=== PATIENT | male | born 1940 | race Caucasian/White ===

== ENCOUNTER 2019-06-02 16:23 | Inpatient (IN) | payer MEDICARE, SELFPAY ==
[~2019-06-02] VITALS: Ht 175.3 cm; Wt 65.8 kg
[2019-06-02 16:27] VITALS: BP 138/78
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
--- NOTE | 2019-06-02 16:59 | NUR ---
ED Nurse Note: Pt. went down to radiology for imaging
[2019-06-02] MEDS ORDERED: Isovue-300 100ml vial INJ PRN ×3 (17:15→18:30)
--- NOTE | 2019-06-02 17:26 | NUR ---
ED Nurse Note: pt. came back from radiology
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
[2019-06-02 18:45] VITALS: BP 135/75
[2019-06-02 18:53] LABS: HEMATOCRIT 33.3 % (42.0-52.0); HEMOGLOBIN 10.7 G/DL (14.2-18.0); MEAN CORPUSCULAR VOLUME 85 FL (80-99); PLATELET COUNT 249 K/UL (150-450); RED BLOOD COUNT 3.93 M/UL (4.70-6.10); RED CELL DISTRIBUTION WIDTH 13.5 % (11.6-14.8)
[2019-06-02 19:01] LABS: ANION GAP 6 mmol/L (5-15); BLOOD UREA NITROGEN 20 mg/dL (7-18); CALCIUM 9.2 MG/DL (8.5-10.1); CARBON DIOXIDE 27 MMOL/L (21-32); CHLORIDE 108 MMOL/L (98-107); CREATININE 0.8 MG/DL (0.55-1.30); SODIUM 141 MMOL/L (136-145)
[2019-06-02 19:04] LABS: APPEARANCE,URINE CLEAR; BILIRUBIN, URINE NEGATIVE (NEGATIVE); COLOR,URINE PALE YELLOW; GLUCOSE, URINE (UA) NEGATIVE (NEGATIVE); KETONES,URINE NEGATIVE (NEGATIVE); LEUKOCYTE ESTERASE ,URINE 1+ (NEGATIVE); NITRITE,URINE NEGATIVE (NEGATIVE); PH,URINE 6.5 (4.5-8.0); PROTEIN,URINE 2+ (NEGATIVE); UROBILINOGEN,URINE NORMAL MG/DL (0.0-1.0)
[2019-06-02 19:05] LABS: INR 0.9 (0.9-1.1)
[2019-06-02 19:14] LABS: ALANINE AMINOTRANSFERASE 20 U/L (12-78); ALBUMIN 3.1 G/DL (3.4-5.0); ALBUMIN/GLOBULIN RATIO 0.8 (1.0-2.7); ALKALINE PHOSPHATASE 210 U/L (46-116); ASPARTATE AMINO TRANSFERASE 27 U/L (15-37); BILIRUBIN,TOTAL 0.3 MG/DL (0.2-1.0); CKMB 5.4 NG/ML (0.0-3.6); CREATINE KINASE 188 U/L (26-308)
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
[2019-06-02] MEDS ORDERED: Ketorolac 30mg Inj IV ONE (20:30)
--- NOTE | 2019-06-02 21:54 | NUR ---
PT TAKEN TO UNIT AND REPORT DONE BY CHRISTIAN GARCIA
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
[2019-06-03] VITALS: BP 124/79
--- NOTE | 2019-06-03 | NUR ---
NURSE NOTES: Patient given sponge bath, partial, as patient requested. Addendum: 06/04/19 at 0053 by KAYA STOLL RN RN Incorrect date 06/04/19 0000.
[2019-06-03 04:00] VITALS: BP 121/72
[2019-06-03 06:44] LABS: ALANINE AMINOTRANSFERASE 16 U/L (12-78); ALBUMIN 3.3 G/DL (3.4-5.0); ALBUMIN/GLOBULIN RATIO 0.9 (1.0-2.7); ALKALINE PHOSPHATASE 211 U/L (46-116); ANION GAP 5 mmol/L (5-15); ASPARTATE AMINO TRANSFERASE 28 U/L (15-37); BILIRUBIN,TOTAL 0.4 MG/DL (0.2-1.0); BLOOD UREA NITROGEN 17 mg/dL (7-18); CALCIUM 8.8 MG/DL (8.5-10.1); CARBON DIOXIDE 29 MMOL/L (21-32); CHLORIDE 105 MMOL/L (98-107); CREATININE 0.7 MG/DL (0.55-1.30); POTASSIUM 4.3 MMOL/L (3.5-5.1); SODIUM 139 MMOL/L (136-145)
--- NOTE | 2019-06-03 06:50 | NUR ---
HAND-OFF: Report given to Regan GONZALES.
[2019-06-03 06:53] LABS: HEMATOCRIT 34.2 % (42.0-52.0); HEMOGLOBIN 10.8 G/DL (14.2-18.0); MEAN CORPUSCULAR VOLUME 86 FL (80-99); PLATELET COUNT 258 K/UL (150-450); RED BLOOD COUNT 3.97 M/UL (4.70-6.10); RED CELL DISTRIBUTION WIDTH 14.3 % (11.6-14.8); WHITE BLOOD COUNT 5.1 K/UL (4.8-10.8)
--- NOTE | 2019-06-03 07:30 | NUR ---
NURSE NOTES: Received pt from CHRISTIAN CHRISTIAN. Pt is confused x3. pt is in RA, no SOB or acute respiratory distress noted. pt has intact iv [id number] RFA 20G SL. An officer is with pt all the times. pt is eating breakfast independently. DESTINY SANDOVAL is aware. All needs attended, bed is locked and is in the lowest position. call light within easy reach. will continue to monitor.
[2019-06-03 08:00] VITALS: BP 125/68
--- NOTE | 2019-06-03 08:38 | Consultation ---
History of Present Illness General Date patient seen: Jun 03, 2019 Present Illness Allergies: Coded Allergies: No Known Allergies (Unverified , 06/02/19) Patient History Healthcare decision maker N Resuscitation status Full Code Advanced Directive on File No Physical Exam Last 24 Hour Vital Signs Date Time Temp Pulse Resp B/P (MAP) Pulse Ox O2 Delivery O2 Flow Rate FiO2 06/03/19 04:00 98.2 66 18 121/72 (88) 06/03/19 00:00 98.1 59 17 124/79 (94) 06/02/19 22:10 Room Air 06/02/19 21:41 98.6 74 19 135/75 100 Room Air 06/02/19 18:45 98.6 74 19 135/75 100 Room Air 06/02/19 16:27 60 14 Room Air 06/02/19 16:27 98.1 60 14 138/78 (98) 95 Room Air 06/02/19 16:27 98.1 60 14 138/78 95 Room Air Laboratory Tests Test 06/02/19 18:25 06/02/19 18:50 06/03/19 05:10 White Blood Count 5.0 K/UL (4.8-10.8) 5.1 K/UL (4.8-10.8) Red Blood Count 3.93 M/UL (4.70-6.10) L 3.97 M/UL (4.70-6.10) L Hemoglobin 10.7 G/DL (14.2-18.0) L 10.8 G/DL (14.2-18.0) L Hematocrit 33.3 % (42.0-52.0) L 34.2 % (42.0-52.0) L Mean Corpuscular Volume 85 FL (80-99) 86 FL (80-99) Mean Corpuscular Hemoglobin 27.3 PG (27.0-31.0) 27.2 PG (27.0-31.0) Mean Corpuscular Hemoglobin Concent 32.1 G/DL (32.0-36.0) 31.6 G/DL (32.0-36.0) L Red Cell Distribution Width 13.5 % (11.6-14.8) 14.3 % (11.6-14.8) Platelet Count 249 K/UL (150-450) 258 K/UL (150-450) Mean Platelet Volume 5.2 FL (6.5-10.1) L 5.5 FL (6.5-10.1) L Neutrophils (%) (Auto) % (45.0-75.0) % (45.0-75.0) Lymphocytes (%) (Auto) % (20.0-45.0) % (20.0-45.0) Monocytes (%) (Auto) % (1.0-10.0) % (1.0-10.0) Eosinophils (%) (Auto) % (0.0-3.0) % (0.0-3.0) Basophils (%) (Auto) % (0.0-2.0) % (0.0-2.0) Differential Total Cells Counted 100 100 Neutrophils % (Manual) 40 % (45-75) L 46 % (45-75) Lymphocytes % (Manual) 44 % (20-45) 35 % (20-45) Monocytes % (Manual) 15 % (1-10) H 18 % (1-10) H Eosinophils % (Manual) 0 % (0-3) 1 % (0-3) Basophils % (Manual) 0 % (0-2) 0 % (0-2) Band Neutrophils 1 % (0-8) 0 % (0-8) Platelet Estimate Adequate Adequate Platelet Morphology Normal Normal Polychromasia 1+ Prothrombin Time 10.0 SEC (9.30-11.50) Prothromb Time International Ratio 0.9 (0.9-1.1) Activated Partial Thromboplast Time 19 SEC (23-33) L Sodium Level 141 MMOL/L (136-145) 139 MMOL/L (136-145) Potassium Level 4.0 MMOL/L (3.5-5.1) 4.3 MMOL/L (3.5-5.1) Chloride Level 108 MMOL/L (98-107) H 105 MMOL/L (98-107) Carbon Dioxide Level 27 MMOL/L (21-32) 29 MMOL/L (21-32) Anion Gap 6 mmol/L (5-15) 5 mmol/L (5-15) Blood Urea Nitrogen 20 mg/dL (7-18) H 17 mg/dL (7-18) Creatinine 0.8 MG/DL (0.55-1.30) 0.7 MG/DL (0.55-1.30) Estimat Glomerular Filtration Rate > 60 mL/min (>60) > 60 mL/min (>60) Glucose Level 130 MG/DL (74-106) H 89 MG/DL (74-106) Calcium Level 9.2 MG/DL (8.5-10.1) 8.8 MG/DL (8.5-10.1) Total Bilirubin 0.3 MG/DL (0.2-1.0) 0.4 MG/DL (0.2-1.0) Aspartate Amino Transf (AST/SGOT) 27 U/L (15-37) 28 U/L (15-37) Alanine Aminotransferase (ALT/SGPT) 20 U/L (12-78) 16 U/L (12-78) Alkaline Phosphatase 210 U/L (46-116) H 211 U/L (46-116) H Total Creatine Kinase 188 U/L (26-308) Creatine Kinase MB 5.4 NG/ML (0.0-3.6) H Creatine Kinase MB Relative Index 2.8 Troponin I 0.000 ng/mL (0.000-0.056) Total Protein 7.2 G/DL (6.4-8.2) 6.9 G/DL (6.4-8.2) Albumin 3.1 G/DL (3.4-5.0) L 3.3 G/DL (3.4-5.0) L Globulin 4.1 g/dL 3.6 g/dL Albumin/Globulin Ratio 0.8 (1.0-2.7) L 0.9 (1.0-2.7) L Serum Alcohol < 3 mg/dL Urine Color Pale yellow Urine Appearance Clear Urine pH 6.5 (4.5-8.0) Urine Specific [place] 1.015 (1.005-1.035) Urine Protein 2+ (NEGATIVE) H Urine Glucose (UA) Negative (NEGATIVE) Urine Ketones Negative (NEGATIVE) Urine Blood 1+ (NEGATIVE) H Urine Nitrite Negative (NEGATIVE) Urine Bilirubin Negative (NEGATIVE) Urine Urobilinogen Normal MG/DL (0.0-1.0) Urine Leukocyte Esterase 1+ (NEGATIVE) H Urine RBC 2-4 /HPF (0 - 0) H Urine WBC 2-4 /HPF (0 - 0) Urine Squamous Epithelial Cells Occasional /LPF Urine Bacteria Moderate /HPF (NONE) H Urine Opiates Screen Negative (NEGATIVE) Urine Barbiturates Screen Negative (NEGATIVE) Phencyclidine (PCP) Screen Negative (NEGATIVE) Urine Amphetamines Screen Negative (NEGATIVE) Urine Benzodiazepines Screen Negative (NEGATIVE) Urine Cocaine Screen Negative (NEGATIVE) Urine Marijuana (THC) Screen Positive (NEGATIVE) H Hypochromasia 1+ Microbiology Date/Time Source Procedure Growth Status 06/02/19 18:50 Urine,Clean Catch Urine Culture - Preliminary Resulted Height (Feet): 5 Height (Inches): 9.00 Weight (Pounds): 145 Medications Current Medications Medications (Trade) Dose Ordered Sig/Sujatha Route PRN Reason Start Time Stop Time Status Last Admin Dose Admin Acetaminophen (Tylenol) 650 mg Q4H PRN ORAL Mild Pain/Temp > 100.5 06/02/19 23:30 07/02/19 23:29 Iopamidol (Isovue-300 100ml) 100 ml NOW PRN INJ Radiology Procedure 06/02/19 17:15 06/04/19 17:15 Iopamidol (Isovue-300 100ml) 100 ml NOW PRN INJ Radiology Procedure 06/02/19 18:30 06/04/19 18:20 Iopamidol (Isovue-300 100ml) 100 ml NOW PRN INJ Radiology Procedure 06/02/19 18:30 Assessment/Plan Assessment/Plan: (1) Back pain (2) Multiple Lumbar compression fractures (3) Rib fractures seen dictated Pradip Tong Jun 03, 2019 08:38
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
--- NOTE | 2019-06-03 11:00 | Diagnostic Imaging Report ---
Indication: Chest and abdominal pain. Trauma. Technique: Continuous helical transaxial imaging of the chest, abdomen and pelvis was obtained from the lung bases to the pubic symphysis during intravenous contrast administration. Multiple phases of enhancement obtained. Coronal 2-D reformats were also obtained. Study obtained in a Siemens sensation [address] Automatic Exposure Control was utilized. Total Dose length Product (DLP): 960.[address] Dose Index Volume (CTDIvol): 9.65,9.7 mGy Comparison: None Findings: CT CHEST: There is extensive breathing motion limiting evaluation. There are fractures involving multiple ribs on the right side. At least 3 of these appear acute namely the fifth sixth and seventh ribs just anterior to the scapula. There are also fractures of the right lower rib cage namely the ninth and 10th ribs but these show callus and appear to be of a different age than the other fractures. Please correlate clinically. There is no pneumothorax or evidence of deep or injury such as a lung contusion or hematoma. There is no pleural fluid identified. There is generalized emphysema noted with the areas of hyperlucency particularly in the upper lobes. There is a hiatal hernia. CT abdomen pelvis: Lumbar-sacral spine was discussed on the CT lumbar spine report. There are multiple compression fractures noted. Within the pelvis there is an unusual fracture involving the parasymphysis region on the right. Overall the appearance is more in keeping with an older injury. However please correlate clinically. There are portions of the bone and ligamentous and/or soft tissue ossification adjacent to the right pubic fracture which suggests this is also older injury. In addition there are bilateral sacral fractures. These could be subacute in age. There is some sclerosis associated with the fractures. Please correlate clinically. Generalized osteopenia is noted. Within the urinary bladder there is an enhancing mass demonstrated measuring about 2.3 x 3 cm. This is along the posterior wall of the urinary bladder toward the left side. This is near the UVJ. Cystoscopic correlation is recommended. Malignancy is a suspected. There is mild thickening of the wall the urinary bladder. There is mild distention of fluid-filled small bowel throughout the abdomen. The gallbladder is contracted. There is no hydronephrosis. Suggestion of diverticula within the colon without definite diverticulitis. The appendix is not well seen on this examination is questionably identified. Moderate aortoiliac calcifications are present. Extensive motion limiting evaluation. IMPRESSION: Acute rib fractures on the right fifth through eighth ribs. No pneumothorax or evidence of associated deeper injury. Older fractures involving the right ninth and 10th ribs. Older fractures involving the right pubis adjacent to the pubic symphysis with adjacent extensive soft tissue ossification. Subacute to chronic fractures involving the sacrum bilaterally. Correlate clinically. 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 This is further discussed on the CT lumbar spine report. Incidental findings: 2.5 cm mass left posterior urinary bladder. Malignancy suspected. Correlate with cystoscopy. Emphysema/COPD as described above Hiatal hernia. Suggestion of mild diverticulosis without definite evidence of diverticulitis. Atherosclerotic vascular disease. The current study is significantly limited by motion within the chest and abdomen and pelvis. Preliminary results were conveyed to the emergency department 06/02/19 @20: 20. The CT scanner at [facility] is accredited by the [employer] and the scans are performed using dose optimization techniques as appropriate to a performed exam including Automatic Exposure control.
--- NOTE | 2019-06-03 11:07 | NUR ---
NURSE NOTES: relayed to Dr Ellison re Dr Barrios recs to consult spine consult or transfer to higher level of care per dr ellison he will consult dr Rossi and if there is bed at [facility] pt may be transferred
--- NOTE | 2019-06-03 11:13 | Diagnostic Imaging Report ---
Indication: Headache. Head trauma Technique: Contiguous 5 mm thick transaxial imaging of the head obtained in a Siemens Sensation [address] scanner. Soft tissue and bone windows generated. Automatic Exposure Control was utilized. Total Dose length Product (DLP): 1541.[address] Dose Index Volume (CTDIvol): 70.38 mGy Comparison: none Findings: There is mild prominence of the ventricles, basal cisterns, and cerebral sulci consistent with atrophy. Mild, nonspecific, white matter hypoattenuation is noted throughout the brain consistent with chronic small vessel disease. There is no midline shift, edema, acute hemorrhage, mass effect, or abnormal extra-axial fluid collections. There is a evidence of a fracture involving the floor the right orbit. This is probably an old fracture. There is moderate depression of the floor into the upper part of the maxillary sinus. There is also fracture of the lateral wall the orbit which is probably old as well. The right globe is abnormal with the ovoid area of high density within the vitreous chamber which may represent hemorrhage or proteinaceous fluid. There are radiopaque bandlike structure on the globe from prior surgery. There is a small focus of scalp swelling over the right frontal region and mild the soft tissue swelling over the nose. Impression: No acute intracranial bleed, mass effect or edema. Mild atrophy of the brain. Nonspecific white matter hypoattenuation probably due to chronic small vessel disease. Evidence of previous right facial and orbital trauma. This is probably old. Please correlate clinically Mild scalp and nasal contusion suspected. The CT scanner at [facility] is accredited by the [employer] and the scans are performed using dose optimization techniques as appropriate to a performed exam including Automatic Exposure control.
--- NOTE | 2019-06-03 11:30 | Diagnostic Imaging Report ---
Indication: Back pain Technique: Continuous helical transaxial imaging of the lumbar spine was obtained. No IV contrast was administered. Coronal 2-D reformats were also obtained. Study obtained in a Siemens sensation [address] Total Dose length Product (DLP): 449.[address] Dose Index Volume (CTDIvol): 12.75 mGy Comparison: None Findings: There are severe compression fracture deformities involving all of the lumbar vertebra and the T12 vertebra which show variable degrees of moderate to severe loss of height. The most severe compression fractures involving the T12 and L1 vertebra and the L3 vertebra. The L3 vertebral fracture is notable for mild retropulsion into the canal resulting in probable central canal stenosis. The age of the fractures is not absolutely certain but there is definitely a chronic component. In other words, the fractures are old with the caveat that there may be superimposed acute injury which is not excludable. MRI may be helpful for further evaluation as MR is more specific and sensitive for acute bony injury. In addition, the bones exhibit marked heterogeneity with areas of lucency for example within the upper endplates of L4 and within the L2 vertebra, T11 and T10 vertebra. While this may be due to severe osteoporosis, infiltrative disease such as a metastatic neoplasm or multiple myeloma are not excluded. Superimposed degenerative disease noted with multilevel endplate osteophytes and sclerosis and hypertrophy of the lumbar facets. Some of the vertebral fractures are demonstrated vacuum cleft for example at T12 and at L1. There is also moderate variable degrees of narrowing of intervertebral discs. Lastly, the sacrum is notable for bilateral fractures which appear old. Aorta is moderately calcified. IMPRESSION: Severe multilevel vertebral fractures involving T12-L5. The fractures are old. However there may be an acute component superimposed which is not excludable. If clinically warranted, further evaluation with MRI is suggested. Marked heterogeneity with diminished bone mineralization. Metastatic neoplasm or myeloma are not excluded. Findings could be on the basis of aggressive severe osteoporosis. Superimposed degenerative spondylosis as described above. Bilateral sacral fractures late subacute to chronic. Variable degrees of central lateral recess and neural foraminal stenosis which may be better evaluated with MRI. Atherosclerotic disease. The CT scanner at [facility] is accredited by the [employer] and the scans are performed using dose optimization techniques as appropriate to a performed exam including Automatic Exposure control.
[2019-06-03 12:00] VITALS: BP 134/86
[2019-06-03 13:16] LABS: FERRITIN 20 NG/ML (8-388)
--- NOTE | 2019-06-03 13:17 | NUR ---
[employer]ARDER NOTE FAXED OVER MAC FORM TO PLACE PATIENT ON THE MAC LIST CT IMPRESSION REQUESTED. PATIENT MAC NUMBER IS [id number]. WILL CONTINUE TO FOLLOW UP ON TRANSFER
[2019-06-03 13:33] LABS: % IRON SATURATION 20 % (15-50); IRON 72 ug/dL (50-175); TOTAL IRON BINDING CAPACITY 367 ug/dL (250-450)
--- NOTE | 2019-06-03 14:14 | Diagnostic Imaging Report ---
Indication: Chest pain Comparison: None A single view chest radiograph was obtained. Findings: There are multiple rib fractures on the right. The lungs are clear. Heart size is normal. The aorta is slightly enlarged in the area of the arch. Bones are osteopenic. IMPRESSION: Multiple right-sided rib fractures.
--- NOTE | 2019-06-03 14:57 | Diagnostic Imaging Report ---
Indication: Back pain Comparison: None Findings: 3 views of the lumbar spine were obtained. Bones are severely osteopenic. Evaluation is very limited because of projected bowel gas which obscures detail. There are multiple severe vertebral compression fracture deformities that are not evaluated well but appear to involve every level of the lumbar spine. The most severe fractures are at T12, L1, L2 and L3. IMPRESSION: Moderate to severe multilevel vertebral compression fractures, acuity indeterminate on the basis of the current study which is not the adequate. Please refer to the CT report
--- NOTE | 2019-06-03 15:25 | NUR ---
NURSE NOTES: pt is stable and left unit to MRI, waiting to come back.
[2019-06-03 16:00] VITALS: BP 122/52
--- NOTE | 2019-06-03 16:00 | NUR ---
NURSE NOTES: pt came back from MRI and is stable. will continue to monitor.
--- NOTE | 2019-06-03 16:19 | NUR ---
FOREST [employer] BR[employer]ER 58 Y/O MALE BIBA FROM [facility] TO [facility] CC:MEDICAL CLEARANCE SI:ACUTE LUMBAR FRACTURE . RIB FRACTURE VS: BP 138/78, P 60, T 98.0, RR 14, SpO2 95 RBC 3.93, H&H 10.7/33.3, BUN 20 LUMBAR XRAY: Moderate to severe multilevel vertebral compression fractures IS:NS x1L IV TORADOL 30mg IV PLAN: TRANSFER TO HIGHER LEVEL OF CARE MRI OF THE SPINE ADMITTED TO MED/SURG
[2019-06-03] MEDS ORDERED: LORazepam 1mg tab ORAL PRN (16:30)
--- NOTE | 2019-06-03 16:41 | Diagnostic Imaging Report ---
Indication: Neck pain Technique: MRI examination of the cervical spine was performed in a 1.5 Mahnaz magnet. Sequences obtained include sagittal and axial T1 and T2 fast spin echo, and sagittal STIR. Comparison: none Findings: The study is incomplete. Patient was uncooperative and refused to continue. The sagittal STIR sequence was not performed. The current study is suboptimal due to motion. There is no evidence of cord compression. There is loss of cervical lordosis with slight kyphotic deformity in the mid part of the cervical spine. There is abnormal bone marrow signal involving the C4 and C5 vertebra, nature of which is not known. The abnormality is mainly seen on T1 with abnormally low T1 signal noted in this location. There is desiccation and narrowing of intervertebral discs moderate in degree at C4-5 C5-6 and C6-7. Mild anterolisthesis noted at C3-4 and C4-5. Minimal retrolisthesis noted at C6-7. Marginal endplate spurs also demonstrated at these levels as well as uncovertebral spur formation. Mild to moderate bilateral foraminal stenosis demonstrated at C2-3 on the right, bilaterally at C3-4, C5-4-5, C5-6, and C6-7. Mild central stenosis may be present at C4-5. C1-2 is notable for moderate degree of pannus formation. Correlate for rheumatoid arthritis which is sometimes associated with this. No abscess, epidural collection or paraspinous/paravertebral fluid collections or mass identified. IMPRESSION: Incomplete, limited evaluation as described above. C1-2 pannus. Correlate for rheumatoid arthritis or prior trauma. Degenerative disc disease at multiple levels and uncovertebral spur formation with multilevel neural foraminal stenosis. Mild spinal stenosis at C4-5 noted. No evidence of cord compression or myelomalacia. Abnormal bone marrow signal within the C4 and C5 vertebra incompletely assessed on the current examination. The low T1 signal could be due to bone marrow edema. No corresponding STIR sequence could be performed as the patient refused to continue.
--- NOTE | 2019-06-03 17:06 | Cardiology Report ---
APPROVED REPORT EKG Measurement Heart [id number] MI [id number] Normal sinus rhythm Normal ECG
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
--- NOTE | 2019-06-03 19:34 | NUR ---
HAND-OFF: Report given to CHRISTIAN KIRKPATRICK.
--- NOTE | 2019-06-03 20:00 | NUR ---
NURSE NOTES: Patient received in bed, asleep, no acute distress at this time. Bilat leg SCDs on. Call light in reach. international first officer at bedside. IV RFA intact. Will monitor.
[2019-06-03 20:40] VITALS: BP 136/83
[2019-06-03] MEDS: Methocarbamol 500mg tab ORAL PRN (20:44)
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
[2019-06-04] VITALS: BP 110/72
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
--- NOTE | 2019-06-04 00:51 | NUR ---
NURSE NOTES: Spoke with Ron from [facility] [phone] regarding updates on bed availability for patient transfer. No bed available yet.
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
[2019-06-04 04:14] VITALS: BP 113/66
[2019-06-04] MEDS: Methocarbamol 500mg tab ORAL PRN ×2 (04:58→15:35)
--- NOTE | 2019-06-04 07:25 | NUR ---
HAND-OFF: Report given to John GONZALES.
[2019-06-04 08:00] VITALS: BP 129/76
--- NOTE | 2019-06-04 08:31 | NUR ---
IT ADMIN NOTES FAXED MRI RESULTS TO [facility] [phone] Addendum: 06/04/19 at 0856 by Hannah Bob LVN RECEIVED A CALL BACK FROM MARIBEL (COORDINATOR 61) AT [facility] HE WILL REACH OUT TO THE SPINE SURGEON AND CALL BACK TO INFORM ME OF THEIR DECISION.
--- NOTE | 2019-06-04 08:42 | General Progress Note ---
Assessment/Plan Assessment/Plan: (1) Back pain (2) Multiple Lumbar compression fractures (3) Rib fractures Patient will be continued on Tylenol, Robaxin, Neurontin and Lidoderm patch. D/w Dr. Hinton and he concurred. Subjective Date patient seen: Jun 04, 2019 Time patient seen: 07:15 - am Allergies: Coded Allergies: No Known Allergies (Unverified , 06/02/19) Subjective REVIEW OF SYSTEMS: Denies rash, fever, chills, sweating, dizziness, drowsiness, sore throat, or change in weight. No shortness of breath or chest pain. No bowel or bladder incontinence. No dysuria. He is complaining of back pain. SUBJECTIVE: Patient in bed and showing no signs of pain or distress. Pain has been tolerated on the Lidoderm patch and Neurontin. Waiting to be transferred to higher level of care facility. Objective Last 24 Hour Vital Signs Date Time Temp Pulse Resp B/P (MAP) Pulse Ox O2 Delivery O2 Flow Rate FiO2 06/04/19 08:00 97.7 67 18 129/76 (93) 96 06/04/19 04:14 97.8 66 19 113/66 (82) 97 06/04/19 00:00 97.6 63 19 110/72 (85) 95 06/03/19 21:00 Room Air 06/03/19 20:40 97.9 65 19 136/83 (100) 96 06/03/19 19:07 98.4 06/03/19 16:00 98.4 64 19 122/52 (75) 98 06/03/19 12:00 98.0 62 18 134/86 (102) 98 06/03/19 09:00 Room Air Intake and Output 06/03/19 06/04/19 19:00 07:00 Intake Total 260 ml 600 ml Output Total 1100 ml Balance 260 ml -500 ml Intake Oral 260 ml 600 ml Output Urine Total 1100 ml # Voids 4 Height (Feet): 5 Height (Inches): 9.00 Weight (Pounds): 145 Objective GENERAL: Alert, awake, oriented. LUNGS: Decreased bilaterally. HEART: S1 and S2 regular. ABDOMEN: Soft, nontender. EXTREMITIES: No cyanosis. No clubbing. NEURO: No changes. Pradip Tong Jun 04, 2019 08:42
--- NOTE | 2019-06-04 10:54 | NUR ---
NURSE NOTES: PT AXOX3-4, CALM, RESTING IN BED. OFFICER AT BEDSIDE. IN NO APPARENT DISTRESS AT THIS TIME. PT STATES HE HAS PAIN ON RIGHT RIBS. LINDA HOOK, WAS AT BEDSIDE AND MADE AWARE OF NEW PAIN. NO CHANGES TO MEDICATION NOTED. BED IN LOWEST POSITION WITH BEDSIDE RAILS X2 RAISED. BED ALARM ON. CALL LIGHT WITHIN REACH. WILL CONTINUE TO MONITOR.
[2019-06-04 12:00] VITALS: BP 133/80
--- NOTE | 2019-06-04 13:39 | NUR ---
Social Service Note Patient brought in from correction for medical clearance. Patient continues in police custody with officer at bedside. CM working with [facility] for possible transfer. Medical records under review with [facility]. If no surgery indicated patient will return to correction under police custody. Will continue to monitor.
[2019-06-04] MEDS ORDERED: LORazepam Inj 2mg/ml 1ml IV SCH (14:07)
--- NOTE | 2019-06-04 15:37 | NUR ---
MRI CERVICAL STUDY REPEATED AND COMPLETED. SAG STIR IMAGES COMPLETED.
[2019-06-04 16:00] VITALS: BP 127/78
--- NOTE | 2019-06-04 16:22 | Diagnostic Imaging Report ---
Indication: Neck pain. Completing a study from yesterday Technique: MRI examination of the cervical spine was repeated and performed performed in a 1.5 Mahnaz magnet. Sequences obtained include sagittal and axial T1 and T2 fast spin echo, and sagittal STIR. Comparison: MRI cervical spine 06/03/2019 Findings: Current study is also limited by motion. Additional sequences performed confirming presence of bone marrow edema within the C4 and C5 vertebra. Given the degree of degenerative disease present with moderate associated endplate osteophytes and moderate degenerative desiccation and narrowing of intervertebral discs, the bone marrow edema is likely degenerative in nature as well. There is no associated soft tissue swelling in the paravertebral region to suggest traumatic origin to the bone marrow edema and no significant loss of height of the vertebra are seen. Neoplasm is a consideration and included in the differential diagnosis especially if the patient has a history of cancer. No other additional information apart from what was already described yesterday is forthcoming on the basis of the additional sequences obtained today. IMPRESSION: Confirmation of a bone marrow edema within the C4-C5 vertebra which may be degenerative in nature. Would include a differential diagnosis of the metastatic neoplasm or myeloma. Clinical workup and correlation suggested. If warranted clinically, whole bone scan may be of benefit to look for other lesions which may corroborate the current findings.
--- NOTE | 2019-06-04 16:39 | NUR ---
[employer] ME[employer]ANIC NOTE FAXED NEW MRI TO [facility]
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
--- NOTE | 2019-06-04 19:19 | NUR ---
HAND-OFF: Report given to Karan STOLL RN.
[2019-06-04 20:00] VITALS: BP 122/78
--- NOTE | 2019-06-04 20:00 | NUR ---
NURSE NOTES: Patient received in bed, alert and awake. Left hand handcuffed to bed, per officer at bedside. No acute distress at this time. Patient calm and cooperative. IV is intact. Call light in reach, instructed to call for assistance, verbalized understanding. Will continue to monitor.
--- NOTE | 2019-06-04 21:59 | General Progress Note ---
Assessment/Plan Problem List: (1) Rib fracture ICD Codes: S22.39XA - Fracture of one rib, unspecified side, initial encounter for closed fracture SNOMED: 00878171 (2) Lumbar compression fracture ICD Codes: S32.000A - Wedge compression fracture of unspecified lumbar vertebra , initial encounter for closed fracture SNOMED: 642270044 Status: progressing Assessment/Plan: afebrile rib and lumbar fx mri inconclusive reordered mri awaiting transfer to [facility] Subjective ROS Limited/Unobtainable: Yes Constitutional: Reports: no symptoms Allergies: Coded Allergies: No Known Allergies (Unverified , 06/02/19) Objective Last 24 Hour Vital Signs Date Time Temp Pulse Resp B/P (MAP) Pulse Ox O2 Delivery O2 Flow Rate FiO2 06/04/19 21:00 Room Air 06/04/19 20:00 99.0 88 18 122/78 (93) 95 06/04/19 16:00 98.9 74 18 127/78 (94) 96 06/04/19 12:00 97.9 68 18 133/80 (97) 96 06/04/19 09:00 Room Air 06/04/19 08:00 97.7 67 18 129/76 (93) 96 06/04/19 04:14 97.8 66 19 113/66 (82) 97 06/04/19 00:00 97.6 63 19 110/72 (85) 95 Intake and Output 06/03/19 06/04/19 18:59 06:59 Intake Total 260 ml 600 ml Output Total 1100 ml Balance 260 ml -500 ml Intake Oral 260 ml 600 ml Output Urine Total 1100 ml # Voids 4 Height (Feet): 5 Height (Inches): 9.00 Weight (Pounds): 145 EENT: PERRL/EOMI Cardiovascular: normal rate Abdomen: soft Edna Ellison MD Jun 04, 2019 21:58
[2019-06-05] VITALS: BP 126/78
[2019-06-05 04:00] VITALS: BP 129/82
--- NOTE | 2019-06-05 07:19 | NUR ---
HAND-OFF: Report given to John GONZALES.
[2019-06-05 07:45] VITALS: BP 135/78
--- NOTE | 2019-06-05 08:14 | General Progress Note ---
Assessment/Plan Assessment/Plan: (1) Back pain (2) Multiple Lumbar compression fractures (3) Rib fractures Patient will be continued on Tylenol, Robaxin, Neurontin and Lidoderm patch. We will order MRI L spine w/o contrast D/w Dr. Hinton and he concurred. Subjective Date patient seen: Jun 05, 2019 Time patient seen: 07:15 - am Allergies: Coded Allergies: No Known Allergies (Unverified , 06/02/19) Subjective REVIEW OF SYSTEMS: Denies rash, fever, chills, sweating, dizziness, drowsiness, sore throat, or change in weight. No shortness of breath or chest pain. No bowel or bladder incontinence. No dysuria. He is complaining of back pain. SUBJECTIVE: Patient shows no signs of pain or distress. Pain has been tolerated on the Neurontin and Tylenol. He has no new complaints at this time. Awaiting transfer to higher level of care facility. Objective Last 24 Hour Vital Signs Date Time Temp Pulse Resp B/P (MAP) Pulse Ox O2 Delivery O2 Flow Rate FiO2 06/05/19 07:45 97.8 77 18 135/78 (97) 94 06/05/19 04:00 98.0 79 18 129/82 (98) 97 06/05/19 00:00 98.6 85 18 126/78 (94) 96 06/04/19 21:00 Room Air 06/04/19 20:00 99.0 88 18 122/78 (93) 95 06/04/19 16:00 98.9 74 18 127/78 (94) 96 06/04/19 12:00 97.9 68 18 133/80 (97) 96 06/04/19 09:00 Room Air Intake and Output 06/04/19 06/05/19 19:00 07:00 Intake Total 650 ml Output Total 650 ml Balance 650 ml -650 ml Intake Oral 650 ml Output Urine Total 650 ml # Voids 2 4 # Bowel Movements 1 Height (Feet): 5 Height (Inches): 9.00 Weight (Pounds): 145 Objective GENERAL: Alert, awake, oriented. LUNGS: Decreased bilaterally. HEART: S1 and S2 regular. ABDOMEN: Soft, nontender. EXTREMITIES: No cyanosis. No clubbing. NEURO: No changes. Pradip Tong Jun 05, 2019 08:14
--- NOTE | 2019-06-05 10:14 | NUR ---
MRI LUMBAR COMPLETED.
--- NOTE | 2019-06-05 10:37 | General Progress Note ---
Assessment/Plan Problem List: (1) Rib fracture ICD Codes: S22.39XA - Fracture of one rib, unspecified side, initial encounter for closed fracture SNOMED: 94312051 (2) Lumbar compression fracture ICD Codes: S32.000A - Wedge compression fracture of unspecified lumbar vertebra , initial encounter for closed fracture SNOMED: 390466155 Status: progressing Assessment/Plan: generalized pain reordered mri w sedation rib and lumbar fx mri inconclusive reordered mri awaiting transfer [facility] Subjective Allergies: Coded Allergies: No Known Allergies (Unverified , 06/02/19) Subjective generalized pain Objective Last 24 Hour Vital Signs Date Time Temp Pulse Resp B/P (MAP) Pulse Ox O2 Delivery O2 Flow Rate FiO2 06/05/19 07:45 97.8 77 18 135/78 (97) 94 06/05/19 04:00 98.0 79 18 129/82 (98) 97 06/05/19 00:00 98.6 85 18 126/78 (94) 96 06/04/19 21:00 Room Air 06/04/19 20:00 99.0 88 18 122/78 (93) 95 06/04/19 16:00 98.9 74 18 127/78 (94) 96 06/04/19 12:00 97.9 68 18 133/80 (97) 96 Intake and Output 06/04/19 06/05/19 19:00 07:00 Intake Total 650 ml Output Total 650 ml Balance 650 ml -650 ml Intake Oral 650 ml Output Urine Total 650 ml # Voids 2 4 # Bowel Movements 1 Height (Feet): 5 Height (Inches): 9.00 Weight (Pounds): 145 Edna Ellison MD Jun 05, 2019 10:37
--- NOTE | 2019-06-05 10:51 | NUR ---
SUPERVISOR ELECTRIC [employer]OR TESTING NOTES AWAITING THE MRI RESULTS OF THE LUMBAR SPINE THE PREVIOUS MRI WAS OF THE CERVICAL SPINE. [place] [facility] [place] INFORMED [place] THAT WE ARE WAITING FOR THE NEW RESULTS AND WILL FAX TO [phone] ATTN MARTHA.
--- NOTE | 2019-06-05 11:16 | Diagnostic Imaging Report ---
Indication: Pain, lumbar spine fractures demonstrated on recent lumbar CT Technique: Sagittal T1 and T2 fast spin echo, sagittal STIR, axial T1 and T2 fast spin-echo images of the lumbar spine Comparison: Lumbar spine CT dated 06/02/2019 Findings: There is reversal of the upper lumbar lordosis. There is mild levoscoliotic deformity. There is mild anterior offset of L5 on S1, mild posterior offset of L4 on L5. Otherwise normal bony alignment. The conus medullaris terminates at the L1 level. The T10 vertebral body demonstrates normal marrow signal. The T11 vertebral body demonstrates a small sliver subcortical edema on the right anterolateral aspect, but there is no evidence of compression fracture. There is a severe anterior wedge compression fracture deformity of the T12 vertebral body, with approximately 70% height loss. There is diffuse marrow edema which is most striking on the T1-weighted images. There is evidence of a central cleft with gas. This is also demonstrated on the recent CT scan. There is mild retropulsion of the inferior posterior wall, but this does not significantly impinge upon the spinal canal. There is anterior wedge compression fracture deformity of the L1 vertebral body, resulting in 20-30% height loss. This demonstrates diffuse marrow edema indicative of acuity. No significant retropulsion. There is a superior endplate and left lateral compression fracture deformity of the L2 vertebral body. On the left side of the vertebral body, this results in approximately 20% height loss. This demonstrates marrow edema inferior to the superior endplate. There is a severe wedge/burst compression fracture of the L3 vertebral body with vertebra plana deformity and evidence of some retropulsion of the posterior wall. The posterior wall retropulsion results in borderline narrowing of the spinal canal, and may result in compromise of the left lateral recess. There is a defect in central portion of the vertebral body, to the extent that the L2-3 and L3-4 discs appear to be in contact with one another. There is some decreased T1 and increased T2 signal, although this is less striking than would be expected if the entire fracture deformity was acute. There is a superior endplate and inferior endplate compression fracture deformity of the L4 vertebral body. Linear focus of low signal parallel to the disc on the left likely reflects a band of sclerosis demonstrated on recent CT scan. There is subtle mild decreased T1 signal and subtle mild increased STIR signal. There is a mild vertebra plana type compression fracture deformity of the L5 vertebral body. Vertebral body height loss is mostly posterior, estimated 20%. Abnormal marrow signal is seen within the posterior aspect of the vertebral body, with low T1 and high STIR signal present. On the axial images, there is subtle somewhat heterogeneous decreased T1 signal and increased T2 signal in the bilateral sacral wings. This is less evident on the sagittal images. At T10-11 and T11-12, the disc spaces are preserved. No significant disc bulge or protrusion, spinal canal stenosis, or neural foraminal stenosis. As described above, there is some retropulsion of the inferior aspect of the T12 vertebral body into the spinal canal due to the compression fracture. No significant spinal stenosis is seen, however. There is mild to moderate right and mild left neural foraminal stenosis at the T12-L1 level. No significant disc bulge or protrusion. At L1-2, there is circumferential annular bulge. The disc space is preserved. No definite significant spinal stenosis is demonstrated. There is at least moderate compromise of the neural foramina bilaterally, predominantly due to facet hypertrophy as well as the bulging disc At L2-3, there is mild circumferential annular bulge. There is mild narrowing of the spinal canal, predominantly due to posterior retropulsion of the posterior wall of the fractured L3 vertebral body. The neural foramina are preserved. At L3-4, there is circumferential annular bulge. No significant spinal canal compromise is demonstrated. The neural foramina are preserved. At L4-5, there is narrowing of the disc space posteriorly. Circumferential annular bulge and posterior osteophyte complex and facet and ligamentum flavum hypertrophy noted, resulting in borderline narrowing of the spinal canal. There is mild to moderate narrowing of the left neural foramen. The right neural foramen is preserved. At L5-S1, there is mild narrowing of the disc space posteriorly. There is broad-based posterior disc protrusion. This does not appear to significantly narrow the spinal canal, although there is mild transverse narrowing the spinal canal due to facet and ligamentum flavum hypertrophy. The right neural foramen is preserved, but there is likely significant compromise of the left neural foramen from the bulging disc. Included extra spinal soft tissues demonstrate bilateral renal cysts. Impression: Acute wedge compression fracture of the T12 vertebral body with 70% height loss. Marrow edema indicates acuity. There is mild posterior retropulsion. Acute mild wedge compression fracture of the L1 vertebral body with considerable marrow edema confirming acute nature. This results in 20-30% height loss Acute superior endplate and left lateral wedge compression fracture of the L2 vertebral body. Severe wedge/burst compression fracture of the L3 vertebral body, with vertebral plana deformity. There is herniation of both of the adjacent disks through a central defect. There is some marrow edema, indicating a probable acute component, but suspect that this fracture is mostly chronic. L4 vertebral body superior and inferior endplate compression fracture deformities. Mild marrow edema suggests a component of acuity, although findings may in part be chronic and Acute compression fracture of the posterior aspect of the L5 vertebral body with about 20% height loss. Mild abnormal sacral marrow signal, of uncertain significant, could indicate. Sacral insufficiency fractures described on recent CT scan are subacute. However, this could also be physiologic or secondary to degenerative change Note that bone marrow signal in the areas not affected by fractures appears normal, so doubt pathologic etiology of the compression fractures. Abnormal subcortical marrow signal in the right lateral aspect of the T11 vertebral body, probably secondary to degenerative changes Multilevel degenerative changes, as detailed on a level by level basis above Incidental finding of small bilateral renal cysts
[2019-06-05 12:00] VITALS: BP 144/78
--- NOTE | 2019-06-05 14:16 | NUR ---
PHLEBOTOMISTFIREPROOF DOOR ASSEMBLER SI:RIB FRACTURE . LUMBAR COMPRESSION FRACTURE VS: BP 144/78, P 90,T 97.4 RR 18, SpO2 94 RBC 3.97, H&H 10.8/34.2, IS:GABAPENTIN 100mg RISPERIDONE 2mg PLAN: MRI WAITING FOR TRANSFER MED/SURG STATUS
--- NOTE | 2019-06-05 14:27 | NUR ---
CIGARET[employer] TESTER NOTES FAXED UPDATED MRI TO [facility]. FOLLOWED UP WITH MARTHA AND STATUS IS PENDING REVIEW.
[2019-06-05 16:00] VITALS: BP 129/77
--- NOTE | 2019-06-05 16:08 | NUR ---
[employer] OFFICER NOTE [place] [facility] [place] BUT NO AVAILABLE BEDS AT THIS MOMENT. PROVIDED THE NURSES STATION PHONE NUMBER AND PATIENTS ROOM NUMBER TO CONTACT OVER THE WEEKEND IN THE EVENT OF A BED OPENING UP.
--- NOTE | 2019-06-05 19:15 | NUR ---
Patient received in bed, AAO x 4. Left hand handcuffed to bed and police stenographer at bedside. No acute distress at this time. IV intact and patent. Bed locked, lowest position, alarm on, side rails up x 2, call light within reach. Will continue to monitor.
--- NOTE | 2019-06-05 19:25 | NUR ---
HAND-OFF: Report given to Helene CARROLL RN.
[2019-06-05 20:00] VITALS: BP 135/86
[2019-06-06] VITALS: BP 135/88
--- NOTE | 2019-06-06 01:15 | Progress Note ---
DATE: 06/05/2019 SUBJECTIVE: The patient in the in bed. Mental condition is unchanged since previous encounter. He was in pain, able to answer the questions. MENTAL STATUS EXAMINATION: The patient is alert and oriented times to self, place, and situation he is in. Mood is dysphoric. Affect is constricted, congruent with mood. Thought process is concrete. Thought content, no suicidal or homicidal ideation. Memory is impaired. ASSESSMENT: Stable schizophrenia. PLAN: We will continue current medications. Provide the patient with reality orientation and supportive therapy. Santa Reyes M.D. DR: ANTONIO JOB#: [id number] CC:
--- NOTE | 2019-06-06 01:40 | NUR ---
NURSE NOTES: Patient c/o constipation. Called Dr. Leavitt and received order ColAce 100mg po bid prn constipation.
[2019-06-06] MEDS: Docusate 100mg cap ORAL PRN ×2 (03:58→12:55)
[2019-06-06 04:00] VITALS: BP 124/69
--- NOTE | 2019-06-06 07:30 | NUR ---
HAND-OFF: Report given to CHRISTIAN Spears.
--- NOTE | 2019-06-06 07:30 | NUR ---
NURSE NOTES: Received pt from CHRISTIAN GUDINO. Pt is confused x3. pt is in RA, no SOB or acute respiratory distress noted. pt has intact iv access RFA 20G SL. An officer is with pt all the times. pt is eating breakfast independently. Pt has plan to D/C to [facility]. All needs attended, bed is locked and is in the lowest position. call light within easy reach. will continue to monitor.
[2019-06-06 08:00] VITALS: BP 135/71
[2019-06-06 12:00] VITALS: BP 139/79
--- NOTE | 2019-06-06 12:16 | General Progress Note ---
Assessment/Plan Problem List: (1) Rib fracture ICD Codes: S22.39XA - Fracture of one rib, unspecified side, initial encounter for closed fracture SNOMED: [id number] (2) Lumbar compression fracture ICD Codes: S32.000A - Wedge compression fracture of unspecified lumbar vertebra , initial encounter for closed fracture SNOMED: 366270645 Status: stable, progressing Assessment/Plan: pt diet cbc bmp am Subjective Constitutional: Reports: weakness Allergies: Coded Allergies: No Known Allergies (Unverified , 06/02/19) All Systems: reviewed and negative except above Subjective sl confused in bed Objective Last 24 Hour Vital Signs Date Time Temp Pulse Resp B/P (MAP) Pulse Ox O2 Delivery O2 Flow Rate FiO2 06/06/19 09:00 Room Air 06/06/19 08:00 97.8 72 19 135/71 (92) 96 06/06/19 04:00 98.0 65 19 124/69 (87) 95 06/06/19 00:00 98.2 77 19 135/88 (104) 98 06/05/19 21:00 Room Air 06/05/19 20:00 99.3 75 19 135/86 (102) 96 06/05/19 16:00 98.5 74 18 129/77 (94) 96 Intake and Output 06/05/19 06/06/19 19:00 07:00 Intake Total 800 ml 800 ml Output Total 700 ml Balance 800 ml 100 ml Intake Oral 800 ml 800 ml Output Urine Total 700 ml # Voids 3 2 Height (Feet): 5 Height (Inches): 9.00 Weight (Pounds): 145 General Appearance: lethargic EENT: normal ENT inspection Neck: normal alignment Cardiovascular: normal peripheral pulses, normal rate, regular rhythm Respiratory/Chest: chest wall non-tender, lungs clear, normal breath sounds Abdomen: normal bowel sounds, non tender, soft Extremities: normal inspection Edema: no edema noted Arm (L), no edema noted Arm (R), no edema noted Leg (L), no edema noted Leg (R), no edema noted Pedal (L), no edema noted Pedal (R), no edema noted Generalized Neurologic: motor weakness Skin: normal pigmentation, warm/dry Heri Ospina DO Jun 06, 2019 12:16
[2019-06-06 16:00] VITALS: BP 143/85
--- NOTE | 2019-06-06 17:29 | Hematology/Onc Progress Note ---
Assessment/Plan Assessment/Plan Assessment and Recs: # Anemia of iron deficiency ferritin is 20, has been started on iron here --> Anemia workup has been ordered, occult pending r/o gi bleed --> No evidence of hemolysis is noted, peripheral smear has been reviewed. --> Hgb goal >7. Transfuse prn. --> Iron iv has been started x 5 days total --> Medications have been reviewed --> low threshold for gi evaluation in case has occult + # Lumbar compression fracture --> imaging has been reviewed --> pain management as per PM # Rib fracture # Schizophrenia --> as per psych The timing of this note does not necessarily reflect the time of the patient was seen. GREATLY APPRECIATE CONSULTATION. Subjective HEENT: Reports: no symptoms Cardiovascular: Reports: no symptoms; Denies: chest pain, edema, irregular heart rate, lightheadedness, palpitations, syncope, other Respiratory: Denies: no symptoms, cough, shortness of breath, SOB with excertion, SOB at rest, sputum, wheezing, other Gastrointestinal/Abdominal: Denies: no symptoms, abdomen distended, abdominal pain, black stools, tarry stools, blood in stool, constipated, diarrhea, difficulty swallowing, nausea, poor appetite, poor fluid intake, rectal bleeding , vomiting, other Genitourinary: Denies: no symptoms, burning, discharge, frequency, flank pain, hematuria, incontinence, pain, urgency, other Endocrine: Denies: no symptoms, excessive sweating, flushing, intolerance to cold, intolerance to heat, increased hunger, increased thirst, increased urine, unexplained weight gain, unexplained weight loss, other Hematologic/Lymphatic: Denies: no symptoms, anemia, easy bleeding, easy bruising, adenopathy, other Allergies: Coded Allergies: No Known Allergies (Unverified , 06/02/19) Subjective 06/06: started on iron in the am, no f/c, no bleeding, hgb reviewed Objective Objective Current Medications Medications (Trade) Dose Ordered Sig/Sujatha Route PRN Reason Start Time Stop Time Status Last Admin Dose Admin Acetaminophen (Tylenol) 650 mg Q4H PRN ORAL Mild Pain/Temp > 100.5 06/02/19 23:30 07/02/19 23:29 06/04/19 08:32 Docusate Sodium (Colace) 100 mg TWICE A DAY PRN ORAL Constipation 06/06/19 03:45 07/06/19 03:44 06/06/19 12:55 Gabapentin (Neurontin) 100 mg THREE TIMES A DAY ORAL 06/03/19 09:00 07/03/19 08:59 06/06/19 12:56 Iopamidol (Isovue-300 100ml) 100 ml NOW PRN INJ Radiology Procedure 06/02/19 18:30 Lidocaine (Lidoderm 5% PATCH) 1 patch DAILY TDERMAL 06/03/19 09:00 07/03/19 08:59 06/06/19 08:48 Lorazepam (Ativan) 1 mg Q6H PRN ORAL For Anxiety 06/03/19 16:30 06/10/19 16:29 06/04/19 12:38 Methocarbamol (Robaxin) 500 mg Q8H PRN ORAL muscle spasm 06/03/19 08:45 07/03/19 08:44 06/04/19 15:35 Risperidone (RisperDAL) 2 mg BEDTIME ORAL 06/03/19 21:00 07/03/19 20:59 06/05/19 20:47 Last 24 Hour Vital Signs Date Time Temp Pulse Resp B/P (MAP) Pulse Ox O2 Delivery O2 Flow Rate FiO2 06/06/19 16:00 98.2 75 18 143/85 (104) 97 06/06/19 12:00 97.7 76 17 139/79 (99) 97 06/06/19 09:00 Room Air 06/06/19 08:00 97.8 72 19 135/71 (92) 96 06/06/19 04:00 98.0 65 19 124/69 (87) 95 06/06/19 00:00 98.2 77 19 135/88 (104) 98 06/05/19 21:00 Room Air 06/05/19 20:00 99.3 75 19 135/86 (102) 96 06/05/19 16:00 98.5 74 18 129/77 (94) 96 06/05/19 12:00 97.4 90 18 144/78 (100) 95 06/05/19 09:00 Room Air 06/05/19 07:45 97.8 77 18 135/78 (97) 94 06/05/19 04:00 98.0 79 18 129/82 (98) 97 06/05/19 00:00 98.6 85 18 126/78 (94) 96 06/04/19 21:00 Room Air 06/04/19 20:00 99.0 88 18 122/78 (93) 95 Intake and Output 06/05/19 06/06/19 19:00 07:00 Intake Total 800 ml 800 ml Output Total 700 ml Balance 800 ml 100 ml Intake Oral 800 ml 800 ml Output Urine Total 700 ml # Voids 3 2 Height (Feet): 5 Height (Inches): 9.00 Weight (Pounds): 145 Objective Physical Exam: Vitals: reviewed General Appearance: NAD HEENT: normocephalic, atraumatic Neck: non-tender, normal alignment Respiratory/Chest: normal breath sounds bilaterally Cardiovascular/Chest: normal peripheral pulses, normal rate Abdomen: normal bowel sounds, soft, nontender Extremities: normal range of motion Nathaniel Leavitt MD Jun 06, 2019 17:29
--- NOTE | 2019-06-06 19:25 | NUR ---
NURSE NOTES: Patient received in bed, AAO x 4. Left hand handcuffed to bed and police justice at bedside. No acute distress at this time. IV intact and patent. Received call from [facility] for spinal full precaution transfer and bed is ready, 1E Bed 113. Phone number is [phone]. Need to call after at [phone]. Primary doctor is Dr. Varela. Asked to send paper with progress note and put imaging into CD. Bed locked, lowest position, alarm on, side rails up x 2, call light within reach.
--- NOTE | 2019-06-06 19:43 | NUR ---
HAND-OFF: Report given to CHRISTIAN GUDINO.
[2019-06-06 20:00] VITALS: BP 130/77
--- NOTE | 2019-06-06 20:40 | NUR ---
Left message Dr. Leavitt for reconcile meds. Received CD with images from X-ray.
[2019-06-06] MEDS ORDERED: Iron Sucrose 100 MG in NS 55 ML IV SCH (21:00)
[2019-06-06] MEDS ORDERED: ACETAMINOPHEN80 M1 ORAL (21:39)
[2019-06-06] MEDS ORDERED: DOCUSATE SODIU100 MG ORAL (21:40)
[2019-06-06] MEDS ORDERED: GABAPENTIN100 MG ORAL (21:43)
[2019-06-06] MEDS ORDERED: VENOFER100 MG/5 M IV (21:45)
[2019-06-06] MEDS ORDERED: LIDODERM700 M1 TOPIC (21:47)
[2019-06-06] MEDS ORDERED: ATIVAN1 MG ORAL (21:51)
[2019-06-06] MEDS ORDERED: METHOCARBAMOL500 MG ORAL (21:53)
[2019-06-06] MEDS ORDERED: RISPERDAL2 MG ORAL (21:55)
--- NOTE | 2019-06-06 23:16 | NUR ---
NURSE NOTES: Report given to Min at [facility]. Waiting for ambulance.
[2019-06-07] VITALS: BP 127/68
--- NOTE | 2019-06-07 00:17 | NUR ---
NURSE NOTES: Patient transferred by ambulance. 2 Police officers accompanied with patient. No acute distress noted. Vitals were stable. All belongings were with patient.
--- NOTE | 2019-06-07 22:45 | Progress Note ---
DATE: 06/08/2019 SUBJECTIVE: The patient is easily agitated, disorganized, more engaged during the evaluation, and was able to answer the questions. Poor insight. MENTAL STATUS EXAMINATION: The patient is easily agitated. Mood is neutral. Affect is flat. Thought process, there is a paucity of thought content. Thought content, no suicidal or homicidal ideation. ASSESSMENT: Schizophrenia and cognitive impairment. PLAN: We will continue to follow and readjust the medications. Santa Reyes M.D. DR: MARYCHUY JOB#: [id number] CC:
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
== END 2019-06-07 00:15 | DRG 552 ==
LOC: EDBD 16:23 → EMR 16:36 → EDBEDREQ 19:06 → 4E 19:20 → EDBD 19:20 → EDBEDREQ 21:09
DX: S22.080A Wedge compression fracture of T11-T12 vertebra, initial encounter for closed fracture (principal); S32.010A Wedge compression fracture of first lumbar vertebra, initial encounter for closed fracture; S32.020A Wedge compression fracture of second lumbar vertebra, initial encounter for closed fracture; S32.030A Wedge compression fracture of third lumbar vertebra, initial encounter for closed fracture; S22.39XA Fracture of one rib, unspecified side, initial encounter for closed fracture; Z59.0 Homelessness; F17.200 Nicotine dependence, unspecified, uncomplicated; V03.10XA Pedestrian on foot injured in collision with car, pick-up truck or van in traffic accident, initial encounter; D50.9 Iron deficiency anemia, unspecified; F20.9 Schizophrenia, unspecified; G31.84 Mild cognitive impairment of uncertain or unknown etiology; F10.21 Alcohol dependence, in remission
CPT/HCPCS: 36415; 70450; 71045; 71260; 72020; 72131; 72141; 72148; 74177; 80053; 80307; 80329; 81001; 82270; 82550; 82553; 82607; 82728; 82746; 83036; 83540; 83550; 84484; 85007; 85025; 85610; 85730; 86850; 86900; 86901; 87086; 93005; 96360; 99285